=== PATIENT | male | born 1985 | race Two or more races ===

== ENCOUNTER 2016-12-07 04:35 | Emergency (ER) | payer SELFPAY ==
[~2016-12-07] VITALS: Ht 175.3 cm; Wt 90.7 kg
--- NOTE | 2016-12-07 04:35 | NUR ---
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 PT AAOX4 NO ACUTE DISTRESS NOTED, RESP EVEN AND UNLABORED. ER MD AT BEDSIDE TO JAYRO PT.
[2016-12-07] MEDS ORDERED: HYDROMORPHONE INJ 2 MG/ML DISP.SYRIN ONE ×2 (04:40→05:02)
[2016-12-07] MEDS ORDERED: ONDANSETRON HCL/PF 4 MG/2 ML VIAL ONE ×2 (04:40→06:40)
--- NOTE | 2016-12-07 04:46 | NUR ---
RN AT BEDSIDE TO MEDICATE PT.
[2016-12-07] MEDS ORDERED: HYDROMORPHONE INJ 2 MG/ML DISP.SYRIN IV ONE (05:00)
[2016-12-07] MEDS ORDERED: ONDANSETRON HCL/PF 4 MG/2 ML VIAL IVP ONE (05:00)
[2016-12-07] MEDS ORDERED: IV NS 0.9% 1,000 ML BAG IV ONE (05:00)
--- NOTE | 2016-12-07 05:06 | NUR ---
FACILITY ADMINISTRATOR AT [facility] FOR L SHOULDER XRAY.
[2016-12-07] MEDS ORDERED: ETOMIDATE 2 MG/ML VIAL ONE (05:33)
[2016-12-07] MEDS ORDERED: FENTANYL PF 100MCG/2ML AMPUL ONE (05:33)
--- NOTE | 2016-12-07 05:35 | NUR ---
ER MD SPOKE TO PT REGARDING REDUCTION OF L SHOULDER DISLOCATION UNDER MODERATE SEDATION. ALLRISKS EXPLAINED BY ER MD. PT VERBALIZE UNDERSTANDING, CONSENT SIGNED BY PT.
--- NOTE | 2016-12-07 05:43 | NUR ---
RT TYESHA, PHYS THERAPIST JAJA, EMT KEYONA, ER MD MAHER, AND MYSELF AT BEDSIDE TO REDUCTION OF L SHOULDER DISLOCATION UNDER MODERATE SEDATION. PT ON CARDIAC MONITORING, CONTINUOUS POX, O2@15L/NONREBREATHER MASK. AMBUBAG WITHIN REACH. SEE MODERATE SEDATION DOCUMENTATION.
--- NOTE | 2016-12-07 05:49 | NUR ---
RT CALLED TO PT BEDSIDE FOR STANDBY DURING CONSCIENCE SEDATION. PT ON NRB 15L WITH DECREASE IN SPO2 TO 94% THROUGH OUT PROCEDURE
--- NOTE | 2016-12-07 05:54 | NUR ---
PT AAOX4 NO ACUTE DISTRESS NOTED, RESP EVEN AND UNLABORED. PT DENIES PAINOR DISCOMFORT AT THIS TIME. BRAYAN LIGHT WITHIN REACH. WILL CONTINUE TO MONITOR PT CLOSELY.
--- NOTE | 2016-12-07 05:54 | NUR ---
L ARM SHOULDER IMMOBILIZER APPLIED PER ER MD ORDER.
--- NOTE | 2016-12-07 05:54 | NUR ---
REPEAT L SHOULDER XRAY DONE.
[2016-12-07] MEDS ORDERED: ETOMIDATE 2 MG/ML VIAL IV ONE (06:00)
[2016-12-07] MEDS ORDERED: FENTANYL PF 100MCG/2ML AMPUL IV ONE (06:00)
--- NOTE | 2016-12-07 06:09 | NUR ---
PT AAOX4 NO ACUTE DISTRESS NOTED, RESP EVEN AND UNLABORED. PT DENIES PAINOR DISCOMFORT AT THIS TIME. BRAYAN LIGHT WITHIN REACH. WILL CONTINUE TO MONITOR PT CLOSELY. ER MD AT BEDSIDE TO RE-EVAL PT.
--- NOTE | 2016-12-07 06:33 | NUR ---
PT AAOX4 NO ACUTE DISTRESS NOTED, RESP EVEN AND UNLABORED. PT DENIES PAINOR DISCOMFORT AT THIS TIME. PT S/O AT BEDSIDE. PENDING DISPOSITION.
--- NOTE | 2016-12-07 06:39 | NUR ---
PT C/O NAUSEA. ER MD MADE AWARE WITH ORDERS RECEIVED. RN TO MEDICATE PT.
--- NOTE | 2016-12-07 06:42 | NUR ---
PT MEDICATED BY RN PER ER MD ORDER.
--- NOTE | 2016-12-07 06:58 | NUR ---
REPORT GIVEN TO AM SHIFT DANIEL BETANCOURT.
[2016-12-07] MEDS ORDERED: ONDANSETRON HCL/PF 4 MG/2 ML VIAL IV ONE (07:00)
--- NOTE | 2016-12-07 07:24 | NUR ---
IV removed. Catheter intact and site benign. Pressure and 4x4 applied to site. No bleeding noted.
--- NOTE | 2016-12-07 07:24 | NUR ---
Patient discharged to home in stable condition. Written and verbal after care instructions given. Patient verbalizes understanding of instruction.
[2016-12-07 07:28] VITALS: BP 127/80
== END 2016-12-07 07:50 | disposition home or self-care (01) ==
LOC: ER 04:37
DX: S43.015A Anterior dislocation of left humerus, initial encounter (principal); X58.XXXA Exposure to other specified factors, initial encounter; Y92.89 Other specified places as the place of occurrence of the external cause; Y93.89 Activity, other specified; Y99.8 Other external cause status
CPT/HCPCS: 23650; 73030 ×2; 96361; 96374; 96375; 96376; 99285; A4606; J1170 ×2; J2405 ×2; J3490; J7030; Z7610; J3010